=== PATIENT | female | born 1975 | race Hispanic/Latino ===

== ENCOUNTER 2021-08-13 08:07 | Outpatient (CLI) | payer BC, OTHER | END 2021-08-13 08:08 | disposition home or self-care (01) | LOC: CSHMAMMO 08:07 | PROVIDERS: ATTEND Internal Medicine | DX: Z12.31 Encounter for screening mammogram for malignant neoplasm of breast (principal); Z80.3 Family history of malignant neoplasm of breast; M81.0 Age-related osteoporosis without current pathological fracture | CPT/HCPCS: 77063; 77067; 77080 ==

== ENCOUNTER 2024-12-24 11:42 | Outpatient (CLI) | payer BC | END 2024-12-24 11:43 | disposition home or self-care (01) | LOC: CSHMAMMO 11:42 | PROVIDERS: ATTEND Obstetrics & Gynecology | DX: Z12.31 Encounter for screening mammogram for malignant neoplasm of breast (principal); Z80.3 Family history of malignant neoplasm of breast | CPT/HCPCS: 77063; 77067 ==